=== PATIENT | male | born 1960 | race Caucasian/White ===

== ENCOUNTER 2018-04-26 16:22 | Emergency (ER) | payer OTHER ==
[~2018-04-26] VITALS: Ht 182.9 cm; Wt 93.0 kg
[2018-04-26 16:29] VITALS: BP 183/105
[2018-04-26 16:50] LABS: UA COLLECTION TYPE CLN CATCH MIDSTREAM
[2018-04-26 16:51] LABS: CLARITY,URINE TURBID (Clear); COLOR,URINE Red (Yellow)
[2018-04-26 17:17] LABS: RBC,URINE TNTC /HPF (0-2); SQUAMOUS EPITHELIAL CELL,UR FEW /LPF (FEW)
[2018-04-26 17:18] LABS: WBC,URINE 50-100 /HPF (0-4)
[2018-04-26 17:23] LABS: BACTERIA,URINE 1+ /HPF (Neg)
[2018-04-26] MEDS ORDERED: CIPR-230 PO (17:33)
[2018-04-26] MEDS ORDERED: ciprofloxacin 250mg tablet PO ONE (17:35)
== END 2018-04-26 18:30 | disposition home or self-care (01) ==
LOC: ER 16:23
DX: N39.0 Urinary tract infection, site not specified (principal); I10 Essential (primary) hypertension; Z79.899 Other long term (current) drug therapy
CPT/HCPCS: 81001; 87077; 87088; 87186; 99283